=== PATIENT | female | born 1945 | race Caucasian/White ===

== ENCOUNTER → 2017-05-04 | Outpatient (CLI) | payer MEDICARE ==
[~2017-05-04] MED LIST: AMIODARONE 200200 MG PO; AMITRIPTYLINE 225 MG PO; AMLODIPINE10 MG PO; AMOXIL500 MG PO; ASPIRIN 81MG TA81 MG PO; ATORVASTATIN CA20 M1 PO; AUGMENTIN1 TA2 PO; CARVEDILOL6.25 M1 PO; FLEXERIL10 MG PO; HYDROCHLOROTH12.5 M1 PO; LISINOPRIL40 MG PO; LORTAB 500 MG-71 TAB PO; MACROBID 100MG100 M1 PO; MACROBID 100MG100 MG PO; NAPROSYN 500MG500 MG PO; NAPROSYN500 M1 PO; NORTRIPTYLINE H10 MG PO; OMEPRAZOLE40 MG PO; PRAVASTATIN 20M20 MG PO; PROTONIX 40MG T40 MG PO; RANITIDINE HCL150 MG PO; SYMBICORT1 AER IH; TYLENOL W/CODEI1 TAB PO; ULTRAM50 MG PO
--- NOTE | 2017-05-04 09:11 | RADIOLOGY REPORT PS360 ---
MRI-C-SPINE W/O COMPARISON: MRI scan cervical spine 03/01/2012 HISTORY: Generalized neck pain TECHNIQUE: Standard sagittal and axial sequences were performed along with a myelogram sequence. FINDINGS: There is normal curvature and alignment. The marrow signal is normal on all cervical vertebrae. The spinal canal is normal size throughout. There is a broad-based hard disc osteophyte complex C5-6 which is shown slight interval progression from the previous study now causing total effacement of the CSF and mild contouring of the cervical cord at this level. There now is a very small broad-based disc bulge C6-7 which only minimally effaces the CSF and does not contact the cord. This was not seen previously. The remaining disks appear normal. The cervical cord appears normal. The prevertebral soft tissues are normal and the odontoid is normal. IMPRESSION: Interval progression of broad-based hard disc osteophyte complex C5-6 now causing mild contouring of the cervical cord along with new small broad-based disc bulge C6-7
== END ==
LOC: RAD 04-30 08:00
DX: M54.2 Cervicalgia (principal)

== ENCOUNTER → 2017-05-14 | Day surgery (SDC) | payer MEDICARE, MEDICAID ==
[~2017-05-14] VITALS: Ht 165.1 cm; Wt 81.6 kg
[2017-05-14 11:08] VITALS: BP 138/74
[2017-05-14 11:26] VITALS: BP 138/74
[2017-05-14 11:29] VITALS: BP 153/85
--- NOTE | 2017-05-14 11:35 | Procedure Note ---
Procedure detail Date of procedure: 05/14/17 Anesthesiologist: Cezar Figueroa M.D. 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 MRI does show degenerative changes with disc osteophyte complex at C5-C6 and C6-C7. There is also broad-based disc bulge at C6-C7. We will do a cervical epidural steroid injection under fluoroscopy to see if this would help with her symptoms. Procedure detail: Procedure:Cervical epidural steroid injection under fluoroscopy Informed consent was obtained and the risks and benefits of the procedure were explained to the patient. The patient was taken to the procedure room and noninvasive monitors placed, including noninvasive blood pressure cuff and pulse oximeter. The neck was prepped using Betadine as a cleansing solution. The C6-C7 interspace was palpated. The skin and subcutaneous tissues were anesthetized using lidocaine 1.5% and a 25-gauge needle. After this an 18-gauge Touhy epidural needle was placed into the C6-C7 interspace and advanced using fluoroscopic guidance and loss of resistance to air until the epidural space was encountered. After confirmation of needle placement in the epidural space, with dye, a solution containing lidocaine 1.5%, 4 mL and Depo-Medrol 80 mg was incrementally injected into the cervical epidural space.~ The patient tolerated the procedure well with no complications. The patient was observed in the Pain Clinic and then discharged home neurologically intact. Plan and disposition: We will follow-up with her in 2 weeks. We will reevaluate her symptoms at that time. at [id number]
[2017-05-14 11:40] VITALS: BP 131/71
== END ==
LOC: PM 10:59
PROC: 3E0R3BZ Introduction of Anesthetic Agent into Spinal Canal, Percutaneous Approach (ICD-10-PCS; principal; 2017-05-14)
PROC: 3E0R33Z Introduction of Anti-inflammatory into Spinal Canal, Percutaneous Approach (ICD-10-PCS; 2017-05-14)
DX: M50.10 Cervical disc disorder with radiculopathy, unspecified cervical region (principal)
CPT/HCPCS: J1040; Q9966

== ENCOUNTER 2017-06-15 06:58 | Day surgery (SDC) | payer MEDICARE, MEDICAID ==
[~2017-06-15 06:58] MED LIST changes: +LYRICA50 MG PO
[2017-06-15 09:31] VITALS: BP 131/69
== END 2017-06-15 09:24 | disposition home or self-care (01) ==
LOC: SDC 06:58
PROVIDERS: Ophthalmology
PROC: 08RK3JZ Replacement of Left Lens with Synthetic Substitute, Percutaneous Approach (ICD-10-PCS; principal; 2017-06-15 08:30)
DX: H25.9 Unspecified age-related cataract (principal); H53.8 Other visual disturbances; H53.149 Visual discomfort, unspecified
CPT/HCPCS: V2632

== ENCOUNTER 2017-06-29 07:46 | Day surgery (SDC) | payer MEDICARE, MEDICAID ==
[2017-06-29 10:00] VITALS: BP 141/77
== END 2017-06-29 09:54 | disposition home or self-care (01) ==
LOC: SDC 07:46
PROVIDERS: Ophthalmology
PROC: 08RJ3JZ Replacement of Right Lens with Synthetic Substitute, Percutaneous Approach (ICD-10-PCS; principal; 2017-06-29 09:30)
DX: H25.9 Unspecified age-related cataract (principal); H53.8 Other visual disturbances; H53.149 Visual discomfort, unspecified
CPT/HCPCS: V2632